=== PATIENT | male | born 1955 | race Caucasian/White ===

== ENCOUNTER → 2017-09-16 | Outpatient (CLI) | payer OTHER | LOC: FIMAGING 07:50 | PROVIDERS: ATTEND Family Medicine | DX: Z12.2 Encounter for screening for malignant neoplasm of respiratory organs (principal); Z72.0 Tobacco use; E78.5 Hyperlipidemia, unspecified; E66.3 Overweight; Z68.25 Body mass index [BMI] 25.0-25.9, adult; J43.9 Emphysema, unspecified ==

== ENCOUNTER → 2018-04-10 | Outpatient (CLI) | payer OTHER ==
[~2018-04-10] MED LIST: GADOBUTROL 10 ML VIAL IVP ONE
== END ==
LOC: FIMAGING 10:19
PROVIDERS: ATTEND Orthopaedic Surgery
DX: R22.41 Localized swelling, mass and lump, right lower limb (principal)
CPT/HCPCS: A9585